=== PATIENT | female | born 1960 | race Caucasian/White ===

== ENCOUNTER 2025-04-11 19:47 | Inpatient (IN) | payer SELFPAY ==
[~2025-04-11] VITALS: Ht 165.1 cm; Wt 64.4 kg
[~2025-04-11 19:47] MED LIST: CLARITIN10 MG PO; MEDROL DOSEPAK4 MG PO
[2025-04-11 19:57] VITALS: BP 133/96
[2025-04-11 21:03] LABS: BASO # 0.0 10*3/uL (0.0-0.1); BASO % 0.4 % (0.0-1.0); EOS # 0.1 10*3/uL (0.0-0.4); EOS % 0.9 % (1.0-4.0); MEAN CELL VOLUME 98.4 fl (81.0-99.0); MEAN CORPUSCULAR HGB 31.3 pg (27.0-31.0); MEAN PLATELET VOLUME 9.6 fl (9.6-12.3); MONO # 0.6 10*3/uL (0.1-1.0); MONO % 6.1 % (3.0-9.0); NEUT # 6.8 10*3/uL (2.3-7.9); NEUT % 67.8 % (47.0-73.0); NUCLEATED RED BLOOD CELL 0.0 % (0.0-0.0); NUCLEATED RED BLOOD CELL 0.0 10*3/uL (0.0-0.0); PLATELET COUNT AUTOMATED 385 10*3/uL (130-400); RED CELL DISTRI WIDTH 13.0 % (0-14.5)
[2025-04-11 21:26] LABS: ACT PARTIAL THROMBO TIME 28.2 SECONDS (20.0-32.1)
[2025-04-11 21:45] LABS: BILIRUBIN Negative (Negative); BLOOD Trace-Lysed (Negative); CLARITY Clear (Clear); COLOR Yellow (Yellow); KETONE Negative (Negative); LEUKO ESTERASE 3+ (Negative); NITRITE Positive (Negative); PH 5.5 (4.5-8.0); SPECIFIC GRAVITY 1.020 (1.001-1.030); UROBILINOGEN 0.2 E.U./dl (0.0-1.0)
[2025-04-11 21:58] LABS: BACTERIA 4+; WBC 41-50 wbc/hpf (0-5)
[2025-04-11] MEDS ORDERED: SODIUM CHLORIDE 0.9% 1,000 ML IV ONE (22:00)
[2025-04-11 22:08] LABS: BUN 23 mg/dl (9-23); SGPT/ALT 14 U/L (5-49)
[2025-04-11] MEDS ORDERED: AZITHROMYCIN 250 ML IV ONE (22:20)
[2025-04-11] MEDS ORDERED: IBUPROFEN 200 MG TAB PO PRN (23:30)
[2025-04-11] MEDS ORDERED: GUAIFENESIN 200 MG TAB PO PRN (23:40)
[2025-04-12] VITALS: BP 143/85
[2025-04-12] MEDS ORDERED: IRON18 M1 PO (00:56)
[2025-04-12] MEDS ORDERED: B12 ACTIVE1000 MCG PO (00:57)
[2025-04-12] MEDS ORDERED: HAIR SKIN NAIL1 EACH PO (00:57)
[2025-04-12 05:30] LABS: BUN 16 mg/dl (9-23); FREE T4 1.06 ng/dl (0.89-1.76); LDL CHOLESTEROL 108 mg/dL (9-159)
[2025-04-12 06:16] LABS: BASO # 0.1 10*3/uL (0.0-0.1); BASO % 0.6 % (0.0-1.0); EOS # 0.1 10*3/uL (0.0-0.4); EOS % 1.3 % (1.0-4.0); MEAN CELL VOLUME 98.0 fl (81.0-99.0); MEAN CORPUSCULAR HGB 31.4 pg (27.0-31.0); MEAN PLATELET VOLUME 9.9 fl (9.6-12.3); MONO # 0.8 10*3/uL (0.1-1.0); MONO % 7.7 % (3.0-9.0); NEUT # 6.3 10*3/uL (2.3-7.9); NEUT % 63.2 % (47.0-73.0); NUCLEATED RED BLOOD CELL 0.0 % (0.0-0.0); NUCLEATED RED BLOOD CELL 0.0 10*3/uL (0.0-0.0); PLATELET COUNT AUTOMATED 340 10*3/uL (130-400); RED CELL DISTRI WIDTH 13.2 % (0-14.5)
[2025-04-12 07:05] LABS: VITAMIN D, 25-HYDROXY 57.3 ng/mL (30-100)
[2025-04-12 08:00] VITALS: BP 130/80
[2025-04-12] MEDS ORDERED: CARBAMIDE PEROXIDE OTIC 15 ML BOTTLE OT SCH (10:00)
[2025-04-12 12:00] VITALS: BP 110/69
[2025-04-12 16:00] VITALS: BP 119/81
[2025-04-12 20:00] VITALS: BP 140/74
[2025-04-13 06:00] LABS: BUN 17 mg/dl (9-23)
[2025-04-13 06:03] LABS: BASO # 0.1 10*3/uL (0.0-0.1); BASO % 0.6 % (0.0-1.0); EOS # 0.2 10*3/uL (0.0-0.4); EOS % 2.1 % (1.0-4.0); MEAN CELL VOLUME 97.0 fl (81.0-99.0); MEAN CORPUSCULAR HGB 31.1 pg (27.0-31.0); MEAN PLATELET VOLUME 9.8 fl (9.6-12.3); MONO # 0.7 10*3/uL (0.1-1.0); MONO % 7.7 % (3.0-9.0); NEUT # 5.1 10*3/uL (2.3-7.9); NEUT % 59.7 % (47.0-73.0); NUCLEATED RED BLOOD CELL 0.0 % (0.0-0.0); NUCLEATED RED BLOOD CELL 0.0 10*3/uL (0.0-0.0); PLATELET COUNT AUTOMATED 343 10*3/uL (130-400); RED CELL DISTRI WIDTH 13.2 % (0-14.5)
[2025-04-13 08:00] VITALS: BP 123/75
[2025-04-13] MEDS ORDERED: LEVOFLOXACIN750 M2 PO (11:16)
== END 2025-04-13 13:31 | disposition home or self-care (01) | DRG 194 ==
LOC: ED 19:47 → EDHOLD 22:31 → 4E 22:31 → EDHOLD 23:11 → 4E 23:13
PROVIDERS: Nurse Practitioner Family; Student in an Organized Health Care Education/Training Program; ADMIT Internal Medicine; ATTEND Internal Medicine
DX: J18.9 Pneumonia, unspecified organism (principal); N30.01 Acute cystitis with hematuria; H92.09 Otalgia, unspecified ear; R73.9 Hyperglycemia, unspecified; M85.811 Other specified disorders of bone density and structure, right shoulder; J45.909 Unspecified asthma, uncomplicated; M75.01 Adhesive capsulitis of right shoulder; Z88.8 Allergy status to other drugs, medicaments and biological substances; Z79.899 Other long term (current) drug therapy; Z82.49 Family history of ischemic heart disease and other diseases of the circulatory system; Z83.3 Family history of diabetes mellitus; Z83.6 Family history of other diseases of the respiratory system